=== PATIENT | female | born 1990 | race Two or more races ===

== ENCOUNTER 2024-11-04 02:40 | Emergency (ER) | payer SELFPAY ==
[~2024-11-04] VITALS: Ht 170.2 cm; Wt 70.3 kg
[2024-11-04] MEDS ORDERED: ONDANSETRON HCL/PF 4 MG/2 ML VIAL ONE (03:15)
[2024-11-04] MEDS: ONDANSETRON HCL/PF - ER 4 MG/2 ML VIAL IV ONE (03:19)
[2024-11-04] MEDS ORDERED: ONDANSETRON 4 MG TAB.RAPDIS SL ONE (03:30)
[2024-11-04 03:45] LABS: PREGNANCY TEST URINE QUAL NEGATIVE (NEGATIVE)
[2024-11-04] MEDS ORDERED: ONDA4TAB11 PO (05:03)
[2024-11-04 05:13] VITALS: BP 115/82; TEMP 98.1; O2SAT 97
== END 2024-11-04 05:13 | disposition home or self-care (01) ==
LOC: ER 02:44
DX: F10.129 Alcohol abuse with intoxication, unspecified (principal); E86.0 Dehydration; Y90.9 Presence of alcohol in blood, level not specified
CPT/HCPCS: 99283; 96374; 84703; J2405 ×2